=== PATIENT | male | born 2000 | race African-American/Black ===

== ENCOUNTER 2024-03-19 15:55 | Emergency (ER) | payer MEDICAID ==
[~2024-03-19] VITALS: Ht 182.9 cm; Wt 86.2 kg
[2024-03-19] MEDS ORDERED: diphenhydrAMINE 50 MG/1 ML VIAL ONE (16:06)
[2024-03-19] MEDS ORDERED: HALOPERIDOL LACTATE 5 MG/1 ML VIAL ONE (16:06)
[2024-03-19] MEDS ORDERED: LORAZEPAM 2 MG/1 ML VIAL ONE (16:07)
[2024-03-19 16:09] VITALS: O2SAT 96
[2024-03-19] MEDS: diphenhydrAMINE 50 MG/1 ML VIAL IM ONE (16:14)
[2024-03-19] MEDS: HALOPERIDOL LACTATE 5 MG/1 ML VIAL IM ONE (16:14)
[2024-03-19] MEDS: LORAZEPAM 2 MG/1 ML VIAL IM ONE (16:14)
== END 2024-03-19 21:35 ==
LOC: ER 15:55
DX: F29 Unspecified psychosis not due to a substance or known physiological condition (principal); F31.9 Bipolar disorder, unspecified; F12.90 Cannabis use, unspecified, uncomplicated
CPT/HCPCS: 99285; 96372 ×2; J1200; J1630; J2060; A4606; A4663